=== PATIENT | male | born 1965 | race Caucasian/White ===

== ENCOUNTER 2019-10-18 16:21 | Outpatient (CLI) | payer BC, SELFPAY ==
--- NOTE | ~2019-10-18 | XR_ITS ---
EXAMINATION: XR hand RT min 3V INDICATION: Right hand pain TECHNIQUE: Three views of the right hand are obtained. COMPARISON: None available FINDINGS: There is no fracture. There is flexion deformity at the fourth distal interphalangeal joint . There is mild polyarticular osteoarthritis. The soft tissues are unremarkable. IMPRESSION: 1. Flexion deformity at the fourth distal interphalangeal joint which could reflect tendon avulsion. Reviewed, dictated and finalized at location A. IMPRESSION: 1. Flexion deformity at the fourth distal interphalangeal joint which could ref lect tendon avulsion.
== END 2019-10-18 16:22 | disposition home or self-care (01) ==
LOC: ANHIMG 16:34
PROVIDERS: PCP Family Medicine; Visit Provider Family Medicine
DX: M79.641 Pain in right hand (principal); M21.241 Flexion deformity, right finger joints
CPT/HCPCS: 73130

== ENCOUNTER 2020-04-14 11:41 | Outpatient (CLI) | payer BC, SELFPAY ==
--- NOTE | ~2020-04-14 | XR_ITS ---
XR chest 2V 04/14/2020 11:51 Indication: Pneumothorax Procedure: PA and lateral views of the chest Comparison: No prior studies for comparison. Findings: Portacatheter tip in the condyle aspect of the SVC. No focal air space disease, pulmonary e jeremías, pleural effusion or suspected pneumothorax. No acute osseous abnormality. Impression: 1: No acute cardiopulmonary disease. Reviewed, dictated and finalized at location B. Impression: 1: No acute cardiopulmonary disease.
== END 2020-04-14 11:42 | disposition home or self-care (01) ==
LOC: ANHIMG 11:44
PROVIDERS: PCP Family Medicine; Visit Provider Family Medicine
DX: J93.9 Pneumothorax, unspecified (principal)
CPT/HCPCS: 71046

== ENCOUNTER 2020-06-08 11:02 | Outpatient (NON) | payer BC, SELFPAY ==
[2020-06-08 23:01] LABS: SARS-CoV-2 RNA PCR Positive
== END 2020-06-08 11:03 ==
LOC: ANHCOVIDDT 11:04
PROVIDERS: PCP Family Medicine; Visit Provider Family Medicine
DX: U07.1 COVID-19 (principal)
CPT/HCPCS: 87635; C9803; U0003

== ENCOUNTER 2020-07-22 15:01 | Outpatient (CLI) | payer BC, SELFPAY ==
--- NOTE | ~2020-07-22 | MR_ITS ---
EXAMINATION: MR cervical spine wo con DATE: 07/22/2020 16:19 INDICATION: Neck pain. TECHNIQUE: Magnetic resonance imaging (MRI) of the cervical spine was performed without intravenous c ontrast. Sequences included sagittal T2-weighted FSE, sagittal STIR FSE, sagittal T1-weighted FSE, ax ial MERGE, and axial T2-weighted FSE. COMPARISON: None FINDINGS: There is kyphosis of cervical spine. There is 2 mm retrolisthesis of C5 on C6 and C6 on C7. Vertebral body heights are normal. There is moderately decreased disc height at C5-C6 and C6-C7. The spinal cord signal intensity is normal. The following disc levels are specifically discussed: C2-C3: The disc does not extend beyond the endplate margin. There is mild bilateral uncovertebral kenna nt osteoarthritis. There is mild bilateral facet joint osteoarthritis. There is no neural foraminal s tenosis. There is no central canal stenosis. C3-C4: The disc is bulging. There is moderate bilateral uncovertebral joint osteoarthritis. There is mild bilateral facet joint osteoarthritis. There is mild bilateral neural foraminal stenosis. There i s mild central canal stenosis. C4-C5: The disc does not extend beyond the endplate margin. There is moderate bilateral uncovertebral joint osteoarthritis. There is no facet joint osteoarthritis. There is mild bilateral neural foramin al stenosis. There is no central canal stenosis. C5-C6: The disc is bulging. There is severe bilateral uncovertebral joint osteoarthritis. There is no facet joint osteoarthritis. There is moderate bilateral neural foraminal stenosis. There is mild danielito tral canal stenosis with ventral indentation of the spinal cord. C6-C7: The disc is bulging. There is severe bilateral uncovertebral joint osteoarthritis. There is mi ld left facet joint osteoarthritis. There is moderate bilateral neural foraminal stenosis. There is m ild central canal stenosis. C7-T1: There is a central protrusion. There is no uncovertebral joint osteoarthritis. There is mild b ilateral facet joint osteoarthritis. There is mild bilateral neural foraminal stenosis. There is mild central canal stenosis. IMPRESSION: 1. Moderate cervical spondylosis. Reviewed, dictated and finalized at location A. [employer]
== END 2020-07-22 15:02 | disposition home or self-care (01) ==
PROVIDERS: Family Provider Family Medicine; PCP Family Medicine; Visit Provider Family Medicine
DX: M47.892 Other spondylosis, cervical region (principal)
CPT/HCPCS: 72141

== ENCOUNTER 2020-07-30 09:49 | Outpatient (CLI) | payer BC, SELFPAY ==
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
[2020-08-21 19:14] VITALS: BMI 45.6
== END 2020-07-30 09:50 | disposition home or self-care (01) ==
LOC: ANHCSM 10:02
PROVIDERS: Family Provider Family Medicine; PCP Family Medicine; Visit Provider Family Medicine
DX: G47.10 Hypersomnia, unspecified (principal); G47.33 Obstructive sleep apnea (adult) (pediatric)
CPT/HCPCS: 95800

== ENCOUNTER → 2020-08-29 01:21 | Outpatient (CLI) | payer BC, SELFPAY ==
[2020-08-29 19:47] LABS: SARS-CoV-2 RNA PCR Negative
== END ==
PROVIDERS: PCP Family Medicine; Visit Provider Internal Medicine Critical Care Medicine
DX: Z01.812 Encounter for preprocedural laboratory examination (principal); Z20.822 Contact with and (suspected) exposure to COVID-19
CPT/HCPCS: C9803; U0003; U0005

== ENCOUNTER 2020-09-01 09:09 | Outpatient (CLI) | payer BC, SELFPAY ==
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
[2020-09-04 13:14] VITALS: BMI 59.3
== END 2020-09-01 09:10 | disposition home or self-care (01) ==
LOC: ANHCSM 09:09
PROVIDERS: PCP Family Medicine; Visit Provider Family Medicine
DX: G47.33 Obstructive sleep apnea (adult) (pediatric) (principal)
CPT/HCPCS: 95811

== ENCOUNTER 2020-11-03 14:52 | Outpatient (CLI) | payer BC, SELFPAY ==
--- NOTE | ~2020-11-03 | XR_ITS ---
EXAMINATION: XR ribs RT 2V w CXR 2V EXAM DATE: 11/03/2020 15:17 INDICATION: Right rib pain for 6 weeks, feels bruised. TECHNIQUE: Frontal projection of the upper right ribs, frontal projection of the lower right ribs, ob lique projection of the right ribs, frontal and lateral chest x-ray(s) for interpretation. Comparison is made to prior examination from 04/04/2020. FINDINGS: There are no displaced acute right rib fractures identified. There is no soft tissue abno rmality seen. There is a right-sided CT injectable portacatheter. Compared to prior study there has b een development of a small right subpulmonic pleural effusion. IMPRESSION: Small right pleural effusion. Reviewed, dictated and finalized at location A.
== END 2020-11-03 14:53 | disposition home or self-care (01) ==
LOC: ANHIMG 14:59
PROVIDERS: PCP Family Medicine; Visit Provider Family Medicine
DX: R07.89 Other chest pain (principal); J90 Pleural effusion, not elsewhere classified
CPT/HCPCS: 71046; 71100

== ENCOUNTER 2020-11-04 16:24 | Outpatient (CLI) | payer BC, SELFPAY ==
--- NOTE | ~2020-11-04 | CT_ITS ---
EXAMINATION: CTA chest PE protocol EXAM DATE: 11/04/2020 17:40 INDICATION: Chest pain near right ribs. Shortness of breath. Colon cancer with metastases liver and l flavia. TECHNIQUE: Spiral CTA of the chest (pulmonary arteries) was performed with 100 cc Omnipaque 350 intr avenous contrast injection. Images were acquired during the pulmonary arterial phase. Coronal maxi mum intensity projection 3D-reconstructions were created by the technologist on dedicated workstation . Axial, coronal and sagittal reformatted images were reviewed. The dose-length product (DLP) for t his examination was 1007.28 mGy-cm. The exposure was tailored according to patient size (auto mA ex posure control), and iterative reconstruction (ASIR) was used as additional dose reduction technique. There is no prior study for comparison. FINDINGS: Pulmonary arteries are well opacified and without intraluminal filling defects. No thora cic aortic dissection. There is small right pleural thickening, with evidence of pleural nodules cary g the right major fissure, possible metastatic implants. There is a mass in the right liver lobe grant uring about 5 cm with central enhancement. Tracheobronchial tree is patent. There is no mediastinal , hilar or axillary lymphadenopathy. There is no pneumothorax. Heart normal in size. No evidenc e of coronary arterial calcification. No osteoblastic or osteolytic lesions identified. There is a portacatheter. IMPRESSION: 1. No pulmonary emboli or acute findings. 2. Small right pleural effusion with pleural nodularity, possible malignant pleural effusion. 3. Right liver lobe mass. Reviewed, dictated and finalized at location A. IMPRESSION: 1. No pulmonary emboli or acute findings. 2. Small right pleural effusion with pleural nodularity, possible malignant pl eural effusion. 3. Right liver lobe mass.
[2020-11-04 17:31] LABS: Estimated Glomerular Filt Rate > 60
== END 2020-11-04 16:25 | disposition home or self-care (01) ==
PROVIDERS: PCP Family Medicine; Visit Provider Family Medicine
DX: R07.89 Other chest pain (principal); J90 Pleural effusion, not elsewhere classified; R16.0 Hepatomegaly, not elsewhere classified
CPT/HCPCS: 71275; Q9967